=== PATIENT | male | born 2000 | race Caucasian/White ===

== ENCOUNTER 2021-03-09 16:42 | Emergency (ER) | payer OTHER | END 2021-03-09 21:09 | disposition home or self-care (01) | LOC: FER 16:42 | DX: S61.210A Laceration without foreign body of right index finger without damage to nail, initial encounter (principal); E07.9 Disorder of thyroid, unspecified; Z79.899 Other long term (current) drug therapy; Z23 Encounter for immunization; W26.0XXA Contact with knife, initial encounter; Y92.009 Unspecified place in unspecified non-institutional (private) residence as the place of occurrence of the external cause | CPT/HCPCS: 73140; 90471; 90715 ==